=== PATIENT | male | born 1970 | race Caucasian/White ===

== ENCOUNTER 2020-09-11 15:07 | Emergency (ER) | payer SELFPAY ==
[~2020-09-11] VITALS: Ht 182 cm; Wt 54.0 kg
--- NOTE | 2020-09-11 15:23 | ED Cough/URI ---
General Chief Complaint: Respiratory Problems Stated Complaint: UPPER RESP PROBLEMS Source: patient Exam Limitations: no limitations History of Present Illness Date Seen by Provider: September 11, 2020 Time Seen by Provider: 15:21 Initial Comments To ER from Dr. Harris's office with reports of a cavitary lung mass seen on CT with neoplasm versus infectious cause as primary differentials. He is a smoker. He has had low fevers at night, shortness of breath and a cough. Denies hemoptysis. . He is lost about 25 pounds over the past 6 months and about 10 pounds over the past week. Primary care is with [facility]. Timing/Duration: getting worse Severity/Quality: productive cough Associated Symptoms: cough Allergies and Home Medications Allergies Coded Allergies: No Allergy Information Available (Unverified , 09/11/20) Patient Home Medication List Home Medication List Reviewed: Yes Review of Systems Review of Systems Constitutional: see HPI EENTM: see HPI Respiratory: see HPI, cough Cardiovascular: no symptoms reported Genitourinary: no symptoms reported Musculoskeletal: no symptoms reported Skin: no symptoms reported Psychiatric/Neurological: No Symptoms Reported Hematologic/Lymphatic: No Symptoms Reported Immunological/Allergic: no symptoms reported Physical Exam Vital Signs - First Documented 09/11/20 15:19 Temp 37.7 Pulse 104 Resp 20 B/P (MAP) 129/86 (100) Pulse Ox 96 O2 Delivery Room Air Capillary Refill : Height: '" Weight: lbs. oz. kg; BMI Method: General Appearance: WD/WN, no apparent distress Eyes: Bilateral Eye Normal Inspection, Bilateral Eye PERRL, Bilateral Eye EOMI HEENT: PERRL/EOMI, normal ENT inspection Respiratory: no respiratory distress, no accessory muscle use Focused Exam Lactate Level 09/11/20 15:35: Lactic Acid Level 1.70 Lactic Acid Level Laboratory Tests Test 09/11/20 15:35 Lactic Acid Level 1.70 MMOL/L (0.50-2.00) Progress/Results/Core Measures Suspected Sepsis SIRS Temperature: Pulse: Respiratory Rate: Laboratory Tests 09/11/20 15:35: White Blood Count 16.5H Blood Pressure / Mean: 09/11/20 15:35: Lactic Acid Level 1.70 Laboratory Tests 09/11/20 15:35: Creatinine 0.52L, Platelet Count 603H, Total Bilirubin 0.5 Results/Orders Lab Results Laboratory Tests Test 09/11/20 15:35 09/11/20 16:00 Range/Units White Blood Count 16.5 H 4.3-11.0 10^3/uL Red Blood Count 2.84 L 4.30-5.52 10^6/uL Hemoglobin 9.6 L 13.3-17.7 g/dL Hematocrit 28 L 40-54 % Mean Corpuscular Volume 98 80-99 fL Mean Corpuscular Hemoglobin 34 25-34 pg Mean Corpuscular Hemoglobin Concent 34 32-36 g/dL Red Cell Distribution Width 13.9 10.0-14.5 % Platelet Count 603 H 130-400 10^3/uL Mean Platelet Volume 8.4 L 9.0-12.2 fL Immature Granulocyte % (Auto) 1 % Neutrophils (%) (Auto) 81 H 42-75 % Lymphocytes (%) (Auto) 10 L 12-44 % Monocytes (%) (Auto) 8 0-12 % Eosinophils (%) (Auto) 0 0-10 % Basophils (%) (Auto) 0 0-10 % Neutrophils # (Auto) 13.4 H 1.8-7.8 10^3/uL Lymphocytes # (Auto) 1.7 1.0-4.0 10^3/uL Monocytes # (Auto) 1.3 H 0.0-1.0 10^3/uL Eosinophils # (Auto) 0.0 0.0-0.3 10^3/uL Basophils # (Auto) 0.0 0.0-0.1 10^3/uL Immature Granulocyte # (Auto) 0.2 H 0.0-0.1 10^3/uL Neutrophils % (Manual) 89 % Lymphocytes % (Manual) 7 % Monocytes % (Manual) 2 % Eosinophils % (Manual) 0 % Basophils % (Manual) 0 % Band Neutrophils 2 % Polychromasia SLIGHT Anisocytosis SLIGHT Erythrocyte Sedimentation Rate > 140 H 0-15 MM/HR Sodium Level 128 L 135-145 MMOL/L Potassium Level 2.9 L 3.6-5.0 MMOL/L Chloride Level 91 L 98-107 MMOL/L Carbon Dioxide Level 29 21-32 MMOL/L Anion Gap 8 5-14 MMOL/L Blood Urea Nitrogen 3 L 7-18 MG/DL Creatinine 0.52 L 0.60-1.30 MG/DL Estimat Glomerular Filtration Rate > 60 BUN/Creatinine Ratio 6 Glucose Level 100 70-105 MG/DL Lactic Acid Level 1.70 0.50-2.00 MMOL/L Calcium Level 8.1 L 8.5-10.1 MG/DL Corrected Calcium 9.3 8.5-10.1 MG/DL Total Bilirubin 0.5 0.1-1.0 MG/DL Aspartate Amino Transf (AST/SGOT) 46 H 5-34 U/L Alanine Aminotransferase (ALT/SGPT) 21 0-55 U/L Alkaline Phosphatase 107 40-136 U/L C-Reactive Protein High Sensitivity 17.19 H 0.00-0.50 MG/DL Total Protein 6.7 6.4-8.2 GM/DL Albumin 2.5 L 3.2-4.5 GM/DL My Orders Orders - KIRK MEDINA APRN Cbc With Automated Diff (09/11/20 15:19) Comprehensive Metabolic Panel (09/11/20 15:19) Erythrocyte Sedimentation Rate (09/11/20 15:19) Hs C Reactive Protein (09/11/20 15:19) Blood Culture (09/11/20 15:19) Lactic Acid Analyzer (09/11/20 15:19) Ct Chest/Abdomen/Pelvis W (09/11/20 15:19) Tb Gold Quantiferon Plus (09/11/20 15:19) Hiv 1&2 Antibody (09/11/20 15:19) Afb Culture And Smear (09/11/20 15:19) Manual Differential (09/11/20 15:35) Iohexol Injection (Omnipaque 350 Mg/Ml 1 (09/11/20 16:30) Received Contrast (Hold Metformin- Contr (09/11/20 16:30) Sodium Chloride Flush (Catheter Flush Sy (09/11/20 16:30) Ns (Ivpb) (Sodium Chloride 0.9% Ivpb Bag (09/11/20 16:30) Ns Iv 1000 Ml (Sodium Chloride 0.9%) (09/11/20 17:30) Piperacillin Sodium/Tazobactam (Zosyn Vi (09/11/20 17:30) Medications Given in ED Current Medications Medications Dose Ordered Sig/Chacho Route Start Time Stop Time Status Last Admin Dose Admin Iohexol 100 ml ONCE ONCE IV 09/11/20 16:30 09/11/20 16:31 DC 09/11/20 16:54 68 ML Piperacillin Sod/ Tazobactam Sod 4.5 gm/Sodium Chloride 100 ml @ 200 mls/hr ONCE ONCE IV 09/11/20 17:30 09/11/20 17:59 09/11/20 17:46 200 MLS/HR Sodium Chloride 10 ml NEEDED PRN IV 09/11/20 16:30 09/11/20 16:55 10 ML Sodium Chloride 100 ml ONCE ONCE IV 09/11/20 16:30 09/11/20 16:31 DC 09/11/20 16:54 80 ML Vital Signs/I&O 09/11/20 15:19 Temp 37.7 Pulse 104 Resp 20 B/P (MAP) 129/86 (100) Pulse Ox 96 O2 Delivery Room Air Capillary Refill : Diagnostic Imaging Diagonstic Imaging: CT Comments NAME: MANUEL COREA [facility] REC#: [id number] PT STATUS: REG ER : 1970 PHYSICIAN: KIRK MEDINA TECHNICAL DIRECTOR ADMIT DATE: 09/11/20/ER Draft Date of Exam:09/11/20 CT CHEST/ABDOMEN/PELVIS W PROCEDURE: CT chest, abdomen, and pelvis with contrast. TECHNIQUE: Multiple contiguous axial images were obtained through the chest, abdomen, and pelvis after the administration of intravenous contrast. Auto Exposure Controls were utilized during the CT exam to meet ALARA standards for radiation dose reduction. INDICATION: Lung mass. There is a large destructive area of consolidation in the right upper lobe apical posterior segments. There are some patchy areas of consolidation in the anterior segment of the right upper lobe. There is also some consolidation in the superior segment of the right lower lobe. Left lung is clear. There are no effusions or pneumothoraces. There is no hilar or mediastinal lymphadenopathy. IMPRESSION: Multifocal areas of consolidation in the right lung with largest being in the right apex. This has multiple areas of cavitation within it. It has a transverse diameter of 9 cm. There are no appreciable endobronchial lesions. This is most likely an infectious etiology. Tuberculosis cannot be excluded. This would not be a typical appearance for neoplasm but that cannot be completely excluded. CT abdomen and pelvis: There is fatty infiltration of the liver. Gallbladder is contracted. Pancreas appears normal. Spleen is not enlarged. Kidneys and adrenals appear normal. Aorta and IVC appear normal. Small bowel is not dilated. Urinary bladder is normal. Prostate is not enlarged. Large and small bowel appear normal. IMPRESSION: Hepatic steatosis. CT of the abdomen and pelvis is otherwise unremarkable. Dictated on workstation # [id number] Dict: 09/11/20 1701 Trans: 09/11/20 1716 [facility] [id number] Interpreted by: BONY DEVRIES MD Electronically signed by: Departure Impression Primary Impression: Cavitary lesion of lung Disposition: ADMITTED INPATIENT Condition: Stable KIRK MEDINA TECHNICAL DIRECTOR September 11, 2020 15:23
[2020-09-11 15:57] LABS: BASOPHILS % (AUTO) 0 % (0-10); EOSINOPHILS % (AUTO) 0 % (0-10); HEMATOCRIT 28 % (40-54); HEMOGLOBIN 9.6 g/dL (13.3-17.7); LYMPHOCYTES # (AUTO) 1.7 10^3/uL (1.0-4.0); LYMPHOCYTES % (AUTO) 10 % (12-44); MEAN CORPUSCULAR HEMOGLOBIN 34 pg (25-34); MEAN CORPUSCULAR HGB CONC 34 g/dL (32-36); MEAN CORPUSCULAR VOLUME 98 fL (80-99); MEAN PLATELET VOLUME 8.4 fL (9.0-12.2); MONOCYTES # (AUTO) 1.3 10^3/uL (0.0-1.0); MONOCYTES % (AUTO) 8 % (0-12); NEUTROPHILS # (AUTO) 13.4 10^3/uL (1.8-7.8); NEUTROPHILS % (AUTO) 81 % (42-75); PLATELET COUNT 603 10^3/uL (130-400); WHITE BLOOD COUNT 16.5 10^3/uL (4.3-11.0)
[2020-09-11 16:05] LABS: ALBUMIN 2.5 GM/DL (3.2-4.5); CHLORIDE 91 MMOL/L (98-107); POTASSIUM 2.9 MMOL/L (3.6-5.0); SODIUM 128 MMOL/L (135-145)
[2020-09-11 16:06] LABS: CALCIUM 8.1 MG/DL (8.5-10.1)
[2020-09-11 16:08] LABS: GLUCOSE 100 MG/DL (70-105); TOTAL PROTEIN 6.7 GM/DL (6.4-8.2)
[2020-09-11 16:09] LABS: CARBON DIOXIDE 29 MMOL/L (21-32)
[2020-09-11 16:10] LABS: BILIRUBIN,TOTAL 0.5 MG/DL (0.1-1.0)
[2020-09-11 16:11] LABS: ALKALINE PHOSPHATASE 107 U/L (40-136); CREATININE SERUM 0.52 MG/DL (0.60-1.30); GFR ESTIMATED > 60
[2020-09-11 16:13] LABS: BUN/CREATININE RATIO 6
[2020-09-11 16:14] LABS: ALANINE AMINOTRANSFERASE 21 U/L (0-55)
[2020-09-11 16:24] LABS: ANISOCYTOSIS SLIGHT; BAND NEUTROPHILS 2 %; BASOPHILS % (MANUAL) 0 %; EOSINOPHILS % (MANUAL) 0 %; LYMPHOCYTES % (MANUAL) 7 %; MONOCYTES % (MANUAL) 2 %; NEUTROPHILS % (MANUAL) 89 %; POLYCHROMASIA SLIGHT
[2020-09-11 16:25] LABS: ERYTHROCYTE SEDIMENTATION RATE > 140 MM/HR (0-15)
[2020-09-11] MEDS ORDERED: IOHEXOL 350 MG/ML 100 ML (OMNIPAQUE 350) VIAL IV ONE (16:30)
[2020-09-11] MEDS ORDERED: NS 100 ML (IVPB) BAG IV ONE (16:30)
[2020-09-11] MEDS ORDERED: HOLD METFORMIN - RECEIVED CONTRAST 20 ML VIAL IV SCH (16:30)
[2020-09-11] MEDS ORDERED: CATHETER FLUSH 10 ML SYR IV PRN (16:30)
--- NOTE | 2020-09-11 17:17 | Diagnostic Imaging Report ---
PROCEDURE: CT chest, abdomen, and pelvis with contrast. TECHNIQUE: Multiple contiguous axial images were obtained through the chest, abdomen, and pelvis after the administration of intravenous contrast. Auto Exposure Controls were utilized during the CT exam to meet ALARA standards for radiation dose reduction. INDICATION: Lung mass. There is a large destructive area of consolidation in the right upper lobe apical posterior segments. There are some patchy areas of consolidation in the anterior segment of the right upper lobe. There is also some consolidation in the superior segment of the right lower lobe. Left lung is clear. There are no effusions or pneumothoraces. There is no hilar or mediastinal lymphadenopathy. IMPRESSION: Multifocal areas of consolidation in the right lung with largest being in the right apex. This has multiple areas of cavitation within it. It has a transverse diameter of 9 cm. There are no appreciable endobronchial lesions. This is most likely an infectious etiology. Tuberculosis cannot be excluded. This would not be a typical appearance for neoplasm but that cannot be completely excluded. CT abdomen and pelvis: There is fatty infiltration of the liver. Gallbladder is contracted. Pancreas appears normal. Spleen is not enlarged. Kidneys and adrenals appear normal. Aorta and IVC appear normal. Small bowel is not dilated. Urinary bladder is normal. Prostate is not enlarged. Large and small bowel appear normal. IMPRESSION: Hepatic steatosis. CT of the abdomen and pelvis is otherwise unremarkable. Dictated by: Dictated on workstation # [id number]
[2020-09-11] MEDS ORDERED: NS IV 1000 ML 1,000 ML IV SCH (17:30)
[2020-09-11] MEDS ORDERED: PIPERACILLIN SODIUM/TAZOBACTAM 4.5 GM in NS (IVPB) 100 ML IV ONE (17:30)
[2020-09-11 22:22] VITALS: BP 135/75
== END 2020-09-11 22:22 | disposition other institution (70) ==
LOC: EDUNIT# 15:07 → ER 15:10
DX: R91.1 Solitary pulmonary nodule (principal); F17.200 Nicotine dependence, unspecified, uncomplicated
CPT/HCPCS: 36415; 71260; 74177; 80053; 83605; 85007; 85027; 85652; 86141; 86480; 86703; 87015; 87040; 87116; 87206